=== PATIENT | male | born 1985 | race Hispanic/Latino ===

== ENCOUNTER 2023-11-30 11:54 | Emergency (ER) | payer SELFPAY ==
[~2023-11-30 11:54] MED LIST: Iopamidol 370 76% 100 ML VIAL ONE
[2023-11-30] MEDS ORDERED: Sucralfate 1 GM TAB ONE (12:20)
[2023-11-30] MEDS ORDERED: Pantoprazole 40 MG VIAL ONE (12:21)
[2023-11-30] MEDS ORDERED: Sodium Chloride 0.9% 1,000 ML ONE (12:21)
[2023-11-30 12:33] LABS: #Basophils 0.1 thou/uL (0.0-0.2); #Eosinphils 0.2 thou/uL (0.0-0.7); #Lymphocytes 2.6 thou/uL (1.20-3.40); #Monocytes 0.4 thou/uL (0.11-0.59); #Neutrophils 4.3 thou/uL (1.40-6.50); %Eosinophils 2.6 % (0.0-10.0); %Lymphocytes 34.5 % (21.0-51.0); %Monocytes 5.4 % (0.0-10.0); %Neutrophils 56.6 % (42.0-75.0); Hemoglobin 17.7 g/dL (14.0-18.0); Mean Corpuscular HGB CONC 32.8 g/dL (32.0-36.0); Mean Corpuscular Hemoglobin 30.2 pg (27.0-31.0); Mean Corpuscular Volume 92.1 fl (78.0-98.0); Mean Platelet Volume 7.4 fL (7.4-10.4); Platelet Count 210 10x3/uL (130-400); Red Blood Cell (RBC) Count 5.87 mill/uL (4.70-6.10); White Blood Cell (WBC) Count 7.6 10x3/uL (4.8-10.8)
[2023-11-30 12:54] LABS: ALT (SGPT) 40 U/L (8-55); AST (SGOT) 24 U/L (5-34); Albumin 4.4 g/dL (3.5-5.0); Alkaline Phosphatase 65 U/L (40-110); Anion Gap 11 mmol/L (10-20); BUN (Urea Nitrogen) 9 mg/dL (8.9-20.6); Bilirubin, Total 1.1 mg/dL (0.2-1.2); Calc. Creatinine Clearance 0 mL/min (70-130); Calcium 9.3 mg/dL (7.8-10.44); Carbon Dioxide 25 mmol/L (22-29); Chloride 105 mmol/L (98-107); Estimated GFR 114; Globulin 3.2 g/dL (2.4-3.5); Glucose 102 mg/dL (70-105); Lipase 26 U/L (8-78); Potassium 4.4 mmol/L (3.5-5.1); Protein, Total 7.6 g/dL (6.0-8.3); Sodium 137 mmol/L (136-145)
== END 2023-11-30 14:24 | disposition home or self-care (01) ==
LOC: MADERS 11:54
DX: K29.00 Acute gastritis without bleeding (principal)
CPT/HCPCS: 36415; 74177; 80053; 83690; 83735; 85025; 96365; C9113; J7050; Q9967

== ENCOUNTER 2023-12-01 18:21 | Emergency (ER) | payer SELFPAY ==
[2023-12-01] MEDS ORDERED: Pantoprazole 40 MG VIAL ONE (19:03)
[2023-12-01] MEDS ORDERED: Sodium Chloride 0.9% 1,000 ML ONE (19:03)
[2023-12-01] MEDS ORDERED: Ondansetron PF 4 MG/2 ML Vial ONE (19:03)
[2023-12-01 19:37] LABS: Hemoglobin 17.6 g/dL (14.0-18.0); Red Blood Cell (RBC) Count 5.89 mill/uL (4.70-6.10); White Blood Cell (WBC) Count 10.2 10x3/uL (4.8-10.8)
[2023-12-01 19:38] LABS: MDiff Complete? YES; Manual Diff?? YES; Mean Corpuscular HGB CONC 32.6 g/dL (32.0-36.0); Mean Corpuscular Hemoglobin 29.9 pg (27.0-31.0); Mean Corpuscular Volume 91.7 fl (78.0-98.0); Mean Platelet Volume 7.2 fL (7.4-10.4); Platelet Count 214 10x3/uL (130-400); RBC Distribution Width 11.6 % (11.5-14.5)
[2023-12-01 19:42] LABS: Band 1 % (5-11); Lymphocytes 16 % (21-51); Monocytes 4 % (0-10); Neutrophil 66 % (42-75); RBC Morph Comment Within Normal Limits; Reactive Lymphocytes 13 % (0-10)
[2023-12-01 19:43] LABS: Platelet Adequacy Comment Appears Adequate
[2023-12-01 19:54] LABS: Anion Gap 15 mmol/L (10-20); BUN (Urea Nitrogen) 11 mg/dL (8.9-20.6); Bilirubin, Total 1.4 mg/dL (0.2-1.2); Calc. Creatinine Clearance 0 mL/min (70-130); Calcium 9.8 mg/dL (7.6-10.4); Carbon Dioxide 23 mmol/L (22-29); Chloride 102 mmol/L (98-107); Estimated GFR 86; Glucose 91 mg/dL (70-105); Potassium 3.9 mmol/L (3.5-5.1); Sodium 136 mmol/L (136-145)
[2023-12-01 19:55] LABS: ALT (SGPT) 40 U/L (8-55); AST (SGOT) 27 U/L (5-34); Albumin 4.7 g/dL (3.5-5.0); Alkaline Phosphatase 62 U/L (40-110); Globulin 3.2 g/dL (2.4-3.5); Lipase 22 U/L (8-78); Protein, Total 7.9 g/dL (6.0-8.3)
[2023-12-01] MEDS ORDERED: Acetaminophen 500 MG TAB ONE (20:15)
[2023-12-01] MEDS ORDERED: Lidocaine 2% Viscous 100 ML BOTTLE ONE (20:15)
[2023-12-01] MEDS ORDERED: Mag-Al Plus 1200/1200/120 MG (30 mL) UDCUP ONE (20:15)
== END 2023-12-01 20:55 | disposition home or self-care (01) ==
LOC: MADERS 18:21
DX: K29.70 Gastritis, unspecified, without bleeding (principal)
CPT/HCPCS: 70450; 74022; 80053; 83605; 83690; 85025; 96361; 96374; 96375; C9113; J2405; J7050